=== PATIENT | male | born 1965 | race Caucasian/White ===

== ENCOUNTER 2016-10-18 23:24 | Emergency (ER) | payer SELFPAY ==
[~2016-10-18] VITALS: Ht 180.3 cm; Wt 141.5 kg
[~2016-10-18 23:24] MED LIST: ADVIL200 MG PO; ASPIR-LOW81 MG PO; ATENOLOL50 MG PO; Aspirin E.C. PO; CHLORTHALIDONE25 MG PO; CIPRO500 MG PO; CLINDAMYCIN HC300 MG PO; COREG25 M1 PO; FLAGYL500 MG PO; IBUPROFEN600 MG PO; LISINOPRIL-HCT1 EAC3 PO; LISINOPRIL20 MG PO; NOHOMEMEDS
[2016-10-19 00:06] LABS: HEMATOCRIT 37.4 % (38.0-50.0); MCH 27.6 PG (29.0-34.0); MCHC 32.9 G/DL (30.0-36.0); MCV 83.9 FL (86-99); MEAN PLAT.VOLUME 9.2 uM^3 (9.0-12.4); PLATELET COUNT 319 K/uL (156-360); RBC DIS.WIDTH-CV 14.1 % (11.8-14.6); RBC DIS.WIDTH-SD 41.5 % (39-53); RED BLOOD COUNT 4.46 M/uL (4.00-5.50); WHITE BLOOD COUNT 8.4 K/uL (4.1-10.2)
[2016-10-19 00:17] LABS: CHLORIDE 109 mEq/L (99-109); POTASSIUM 3.7 mEq/L (3.7-5.4); SODIUM 141 mEq/L (136-147)
[2016-10-19 00:19] LABS: GLUCOSE 128 mg/dL (70-99)
[2016-10-19 00:20] LABS: ANION GAP 10 MEQ/L (2-14)
[2016-10-19 00:21] LABS: TOTAL BILIRUBIN 1.2 mg/dL (0.0-1.0)
[2016-10-19 00:22] LABS: SERUM ETHYL ALCOHOL < 10 mg/dL
[2016-10-19 00:23] LABS: GFR ESTIMATE (CALCULATED) > 59 mL/min/
[2016-10-19 00:24] LABS: ALKALINE PHOSPHATASE 114 IU/L (3-129)
[2016-10-19 00:25] LABS: UREA NITROGEN (BUN) 15 mg/dL (9-23)
[2016-10-19 00:26] LABS: SALICYLATE < 5.0 MG/DL (15-30)
[2016-10-19 05:07] LABS: BILIRUBIN NEGATIVE; BLOOD NEGATIVE; COLOR YELLOW ((YELLOW)); GLUCOSE (STRIP) NEGATIVE; KETONES NEGATIVE; LEUKOCYTES NEGATIVE; NITRITE NEGATIVE; PH, URINE 6.5 (5-8); PROTEIN (STRIP) TRACE; SPECIFIC GRAVITY 1.024 (1.000-1.030)
[2016-10-19 05:08] LABS: ADD MIUA? NO; UCUL ADDED? NO
[2016-10-19 05:22] LABS: AMPHETAMINE NEGATIVE (500 ng/mL); BARBITURATES NEGATIVE (200 ng/mL); BENZODIAZEPINES NEGATIVE (150 ng/mL); COCAINE NEGATIVE (150 ng/mL); INTERNAL CONTROLS VALID? YES; METHADONE NEGATIVE (200 ng/mL); METHAMPHETAMINE NEGATIVE (500 ng/mL); OPIATES (MORPHINE) NEGATIVE (100 ng/mL); OXYCODONE NEGATIVE (100 ng/mL); PHENCYCLIDINE NEGATIVE (25 ng/mL); PROPOXYPHENE NEGATIVE (300 ng/mL); THC CANNABINOIDS NEGATIVE (50 ng/mL); TRICYCLIC ANTIDEPRESSANTS NEGATIVE (300 ng/mL)
[2016-10-19] MEDS ORDERED: ZOLOFT100 MG PO (11:46)
[2016-10-19 12:48] VITALS: BP 157/98
== END 2016-10-19 12:49 | disposition home or self-care (01) ==
LOC: EME 23:24
PROVIDERS: Emergency Medicine
DX: F32.9 Major depressive disorder, single episode, unspecified (principal); T45.0X2A Poisoning by antiallergic and antiemetic drugs, intentional self-harm, initial encounter; G47.00 Insomnia, unspecified; I10 Essential (primary) hypertension; F34.1 Dysthymic disorder; Z87.891 Personal history of nicotine dependence; Z79.82 Long term (current) use of aspirin
CPT/HCPCS: 80053; 81003; 85027; 90837; 99281; 99285; G0480

== ENCOUNTER 2017-03-18 19:54 | Observation (INO) | payer OTHER ==
[~2017-03-18] VITALS: Ht 180.3 cm; Wt 143.3 kg
[~2017-03-18 19:54] MED LIST changes: +ZOLOFT100 MG PO
[2017-03-18 20:23] LABS: EOSINOPHIL (%) 1.4 % (0-5); EOSINOPHIL COUNT 0.1 K/uL (0-0.3); HEMATOCRIT 41.2 % (38.0-50.0); IMMATURE GRANULOCYTE (%) 0.5 % (0.0-0.7); INSTRUMENT ABS NEUTROPHIL CT 5.9 K/uL; MCH 27.2 PG (29.0-34.0); MCHC 32.3 G/DL (30.0-36.0); MCV 84.3 FL (86-99); MEAN PLAT.VOLUME 9.3 uM^3 (9.0-12.4); MONOCYTE (%) 10.9 % (3-12); MONOCYTE COUNT 0.9 K/uL (0-0.8); NEUTROPHIL (%) 74.6 % (45-76); NEUTROPHIL COUNT 5.9 K/uL (1.8-6.4); PLATELET COUNT 246 K/uL (156-360); RBC DIS.WIDTH-CV 14.7 % (11.8-14.6); RBC DIS.WIDTH-SD 44.8 % (39-53); RED BLOOD COUNT 4.89 M/uL (4.00-5.50); WHITE BLOOD COUNT 7.8 K/uL (4.1-10.2)
[2017-03-18] MEDS ORDERED: SERTRALINE HCL100 MG PO (20:35)
[2017-03-18 20:36] LABS: AMYLASE 35 IU/L (1-118); CHLORIDE 110 mEq/L (99-109); SODIUM 141 mEq/L (136-147)
[2017-03-18] MEDS ORDERED: SPIRONOLACTONE25 MG PO (20:37)
[2017-03-18] MEDS ORDERED: AMLODIPINE BESY10 MG PO (20:37)
[2017-03-18] MEDS ORDERED: BRILINTA90 MG PO (20:37)
[2017-03-18 20:38] LABS: GLUCOSE 108 mg/dL (70-99)
[2017-03-18 20:39] LABS: ANION GAP 9 MEQ/L (2-14)
[2017-03-18 20:41] LABS: SERUM ETHYL ALCOHOL < 10 mg/dL
[2017-03-18 20:42] LABS: GFR ESTIMATE (CALCULATED) > 59 mL/min/
[2017-03-18 20:43] LABS: UREA NITROGEN (BUN) 15 mg/dL (9-23)
[2017-03-18 20:45] LABS: LIPASE 27 U/L (1.0-51.0)
[2017-03-18 22:57] LABS: TROP-I INTERPRETATION NEGATIVE; TROPONIN-I 0.03 ng/mL (0.0-0.30)
[2017-03-18 23:00] LABS: ADD MIUA? NO; BILIRUBIN NEGATIVE; BLOOD NEGATIVE; COLOR YELLOW ((YELLOW)); GLUCOSE (STRIP) NEGATIVE; KETONES NEGATIVE; LEUKOCYTES NEGATIVE; NITRITE NEGATIVE; PROTEIN (STRIP) 30; SPECIFIC GRAVITY 1.014 (1.000-1.030); UCUL ADDED? NO; UROBILINOGEN 0.2 MG/DL (0.2-1.0)
[2017-03-18 23:09] LABS: AMPHETAMINE NEGATIVE (500 ng/mL); BARBITURATES NEGATIVE (200 ng/mL); BENZODIAZEPINES NEGATIVE (150 ng/mL); COCAINE NEGATIVE (150 ng/mL); INTERNAL CONTROLS VALID? YES; METHADONE NEGATIVE (200 ng/mL); METHAMPHETAMINE NEGATIVE (500 ng/mL); OPIATES (MORPHINE) NEGATIVE (100 ng/mL); OXYCODONE NEGATIVE (100 ng/mL); PHENCYCLIDINE NEGATIVE (25 ng/mL); PROPOXYPHENE NEGATIVE (300 ng/mL); THC CANNABINOIDS NEGATIVE (50 ng/mL); TRICYCLIC ANTIDEPRESSANTS NEGATIVE (300 ng/mL)
[2017-03-18] MEDS ORDERED: CIALIS5 MG PO (23:17)
[2017-03-18] MEDS ORDERED: BUSPIRONE HCL10 MG PO (23:17)
[2017-03-18] MEDS ORDERED: LIPITOR80 MG PO (23:17)
[2017-03-18] MEDS ORDERED: TOPROL XL100 MG PO (23:17)
[2017-03-19 00:30] VITALS: BP 159/85
[2017-03-19 02:32] LABS: TROP-I INTERPRETATION NEGATIVE; TROPONIN-I 0.08 ng/mL (0.0-0.30)
[2017-03-19 07:15] VITALS: BP 127/80
[2017-03-19 09:50] LABS: TROP-I INTERPRETATION NEGATIVE; TROPONIN-I 0.05 ng/mL (0.0-0.30)
[2017-03-19 11:33] VITALS: BP 131/90
[2017-03-19] MEDS ORDERED: BACITRACIN-POL3.5 GM BOTH EYES (15:15)
== END 2017-03-19 17:14 | disposition home or self-care (01) ==
LOC: TRA 19:54 → EDOF 23:32 → 5WEST 23:32
PROVIDERS: Emergency Medicine; Physician Assistant
PROC: 0JQ10ZZ Repair Face Subcutaneous Tissue and Fascia, Open Approach (ICD-10-PCS; principal; 2017-03-18)
DX: R07.9 Chest pain, unspecified (principal); S09.90XA Unspecified injury of head, initial encounter; W17.89XA Other fall from one level to another, initial encounter; S01.112A Laceration without foreign body of left eyelid and periocular area, initial encounter; H11.32 Conjunctival hemorrhage, left eye; H53.2 Diplopia; I25.10 Atherosclerotic heart disease of native coronary artery without angina pectoris; I10 Essential (primary) hypertension; Z95.5 Presence of coronary angioplasty implant and graft; E78.5 Hyperlipidemia, unspecified; F32.9 Major depressive disorder, single episode, unspecified; H10.9 Unspecified conjunctivitis; I25.2 Old myocardial infarction; Z86.73 Personal history of transient ischemic attack (TIA), and cerebral infarction without residual deficits; F32.4 Major depressive disorder, single episode, in partial remission; Z87.891 Personal history of nicotine dependence
CPT/HCPCS: 70450; 70486; 71010; 72125; 80048; 81003; 82150; 83690; 84484; 85025; 86900; 86901; 90837; 93005; 99281; 99285; G0378; G0480; J1644; J2270